=== PATIENT | male | born 1935 | race Caucasian/White ===

== ENCOUNTER 2019-01-08 02:10 | Emergency (ER) | payer MEDICARE ==
--- NOTE | 2019-01-08 02:42 | Emergency Department Record ---
History of Present Illness - General Chief complaint: Male Urogenital Problem Stated complaint: BLOOD IN URINE Time Seen by Provider: 01/08/19 02:30 Source: Patient, RN notes reviewed Mode of Arrival: Ambulatory - History of Present Illness Initial comments: hematuria and he self caths for 15 years and he has prostate cancer since [address] Leyva on and plans to have a suprapubic cath placed on January 25. patient was concerned he may have hurt himself. No abdominal pain and he has a soft abd Onset/Timin -: Year(s) Radiation: None Severity: Mild Quality: Aching Consistency: Other Reports: Blood in urine - Related Data Sexually active: No Previous Rx's Medication Instructions Recorded Ciprofloxacin HCl [Cipro] 500 mg PO Q12HR #20 tablet 01/08/19 Allergies Allergy/AdvReac Type Severity Reaction Status Date / Time Sulfa (Sulfonamide Allergy Unverified 01/06/19 09:18 Antibiotics) aspirin AdvReac gastric Unverified 01/06/19 09:18 symptoms Travel Screening - Travel/Exposure Within Last 30 Days Have you traveled within the last 30 days?: No - Travel/Exposure Within Last Year Have you traveled outside the [place] in the last year?: No - Additonal Travel Details Have you been exposed to anyone with a communicable illness?: No - Travel Symptoms Symptom Screening: None Review of Systems Reviewed: No additional complaints except as noted below Constitutional: Reports: As per HPI. Denies: Chills, Fever, Malaise, Night swea ts, Weakness, Weight change Eyes: Reports: As per HPI. Denies: Eye discharge, Eye pain, Photophobia, Vision change ENT: Reports: As per HPI. Denies: Congestion, Dental pain, Ear pain, Epistaxis, Hearing loss, Throat pain Respiratory: Reports: As per HPI. Denies: Cough, Dyspnea, Hemoptysis, Stridor, Wheezes Cardiovascular: Reports: As per HPI. Denies: Arrhythmia, Chest pain, Dyspnea on exertion, Edema, Murmurs, Orthopnea, Palpitations, Paroxysmal nocturnal dyspnea, Rheumatic Fever, Syncope Endocrine: Reports: As per HPI. Denies: Fatigue, Heat or cold intolerance, P olydipsia, Polyuria Gastrointestinal: Reports: As per HPI. Denies: Abdominal pain, Constipation, Diarrhea, Hematemesis, Hematochezia, Melena, Nausea, Vomiting Genitourinary: Reports: As per HPI, Hematuria. Denies: Dysuria, Frequency, Incontinence, Retention, Testicular pain, Testicular mass, Urgency Musculoskeletal: Reports: As per HPI. Denies: Arthralgia, Back pain, Gout, Joint swelling, Myalgia, Neck pain Skin: Reports: As per HPI. Denies: Bruising, Change in color, Change in hair/nails, Lesions, Pruritus, Rash Neurological: Reports: As per HPI. Denies: Abnormal gait, Confusion, Headache, Numbness, Paresthesias, Seizure, Tingling, Tremors, Vertigo, Weakness Psychiatric: Reports: As per HPI. Denies: Anxiety, Auditory hallucinations, Depression, Homicidal thoughts, Suicidal thoughts, Visual hallucinations Hematological/Lymphatic: Reports: As per HPI. 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) - ENDOCRINE Hx Endocrine Disorders: No - MUSCULOSKELETAL Hx Musculoskeletal Disorders: No - PSYCH Hx Psych Problems: No - HEMATOLOGY/ONCOLOGY Hx Hematology/Oncology Disorders: Yes Hx Cancer: Yes (prostate) Hx Radiation Therapy: Yes Comment:: prostate Family Medical History Any Significant Family History?: No Physical Exam - General General Appearance: Alert, Oriented x3, Cooperative, No acute distress - Head Head exam: Normal inspection - Eye Eye exam: Normal appearance, PERRL Pupils: Normal accommodation - ENT ENT exam: Normal exam, Mucous membranes moist, Normal external ear exam, Normal orophraynx, TM's normal bilaterally Ear exam: Normal external inspection. negative: External canal tenderness Nasal Exam: Normal inspection. negative: Discharge, Sinus tenderness Mouth exam: Normal external inspection, Tongue normal Teeth exam: Normal inspection. negative: Dental caries Throat exam: Normal inspection. negative: Tonsillar erythema, Tonsillar exudate - Neck Neck exam: Normal inspection, Full ROM. negative: Tenderness - Respiratory Respiratory exam: Normal lung sounds bilaterally. negative: Respiratory distress - Cardiovascular Cardiovascular Exam: Regular rate, Normal rhythm, Normal heart sounds - GI/Abdominal GI/Abdominal exam: Soft, Normal bowel sounds. negative: Tenderness - Rectal Rectal exam: Deferred - exam: Deferred - Extremities Extremities exam: Normal inspection, Full ROM, Normal capillary refill. negative: Tenderness - Back Back exam: Reports: Normal inspection, Full ROM. Denies: Muscle spasm, Rash noted, Tenderness - Neurological Neurological exam: Alert, Normal gait, Oriented X3, Reflexes normal - Psychiatric Psychiatric exam: Normal affect, Normal mood - Skin Skin exam: Dry, Intact, Normal color, Warm Course Vital Signs 01/08/19 02:21 Temperature 97.7 F Pulse Rate [ 111 H Pulse Ox Probe] Respiratory 20 Rate Blood Pressure 132/96 [Left Arm] Pulse Ox 99 Medical Decision Making - Lab Data Result diagrams: 01/08/19 02:30 01/08/19 02:30 Disposition Clinical Impression: Hematuria Qualifiers: Hematuria type: gross Qualified Code(s): R31.0 - Gross hematuria Disposition: Home, Self-Care Condition: (1) Good Instructions: Hematuria (ED) Additional Instructions: follow up with Dr mercer as scheduled on and return if he develops a fever or abdominal pain. Prescriptions: Ciprofloxacin HCl [Cipro] 500 mg PO Q12HR #20 tablet Time of Disposition: 02:47 Quality - Quality Measures Quality Measures: N/A - Blood Pressure Screening Does Patient Have Any of the Following: No, Active Dx of HTN Blood Pressure Classification: Hypertensive Reading Systolic Measurement: 132 Diastolic Measurement: 96 Screening for High Blood Pressure: Patient Exclusion, Hx of HTN [G9744]
[2019-01-08 02:43] LABS: ABSOLUTE NEUTROPHIL COUNT 3.72; EOS % 2.2 % (0-6); GRAN % 64.3 % (47-80); HEMATOCRIT 45.9 % (42.0-52.0); LYMPH % 21.6 % (16-45); MEAN CELL VOLUME 92.9 fl (81-97); MEAN CORPUSCULAR HEMOGLOBIN 30.4 pg (27-33); MEAN CORPUSCULAR HGB CONC 32.7 g/dl (32-36); MEAN PLATELET VOLUME 9.4 fl (7.4-10.4); MONO % 10.9 % (0-9); PLATELET COUNT 233 K/uL (130-400); RED BLOOD COUNT 4.94 M/uL (4.40-5.70); RED CELL DISTRIBUTION WIDTH 14.2 % (11.5-14.5); WHITE BLOOD COUNT W/O DIFF 5.8 K/uL (4.2-12.2)
[2019-01-08 02:45] LABS: URINE APPEARANCE SL CLOUDY; URINE BILIRUBIN NEGATIVE (NEGATIVE); URINE BLOOD NEGATIVE (NEGATIVE); URINE COLOR YELLOW; URINE GLUCOSE (UA) NEGATIVE (NEGATIVE); URINE PROTEIN NEGATIVE (NEGATIVE); URINE UROBILINOGEN 0.2 E.U./dL (0.20 - 1.00)
[2019-01-08 02:46] LABS: URINE LEUKOCYTE ESTERASE TRACE (NEGATIVE); URINE NITRITE NEGATIVE (NEGATIVE)
[2019-01-08] MEDS ORDERED: CIPROFLOXACIN HCL 500 MG TABLET PO ONE (02:48)
[2019-01-08 02:51] LABS: BLOOD UREA NITROGEN 20 mg/dL (8-23); CREATININE 1.1 mg/dL (0.7-1.2); EST GLOMERULAR FILTRATION RATE > 60 mL/min
[2019-01-08 02:53] LABS: URINE RBC 0 - 2 (NONE SEEN); URINE WBC 21 - 35 (0-2/hpf)
[2019-01-08 02:54] LABS: GLUCOSE,RANDOM 120 mg/dL (74-109); URINE BACTERIA 2+; URINE EPITHELIAL CELLS 0 - 2 (FEW)
[2019-01-08 02:57] LABS: URINE KETONE NEGATIVE (NEGATIVE)
== END 2019-01-08 03:05 | disposition home or self-care (01) ==
LOC: ER 02:10
DX: R31.0 Gross hematuria (principal); R82.79 Other abnormal findings on microbiological examination of urine; I10 Essential (primary) hypertension; I25.2 Old myocardial infarction; Z85.46 Personal history of malignant neoplasm of prostate
CPT/HCPCS: 80048; 81001; 85025; 99283

== ENCOUNTER 2019-01-17 13:43 | Emergency (ER) | payer MEDICARE, BC ==
--- NOTE | 2019-01-17 14:02 | Emergency Department Record ---
History of Present Illness - General Chief Complaint: Difficulty Breathing Stated Complaint: MARCO A Time Seen by Provider: 01/17/19 13:51 Source: Patient Mode of Arrival: Ambulatory Limitations: No limitations - History of Present Illness Initial Comments: The patient is here due to feeling congested for a month. He presently today had some chest pressure earlier but that is gone now. He states his lungs feel tight but he denies any CP, SOB, MARCO A, or any cough. 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 The patient does have an extensive cardiac hx with multiple stents. He also has been told he has Afib in the past. MD Complaint: Shortness of breath Onset/Timin -: Days(s) Known History Of: Congestive heart failure, Other - Related Data Home Medications Medication Instructions Recorded Confirmed Last Taken Furosemide [Lasix] 20 mg PO DAILY 01/17/19 01/17/19 01/17/19 Allergies Allergy/AdvReac Type Severity Reaction Status Date / Time Sulfa (Sulfonamide Allergy RASH Verified 01/17/19 13:51 Antibiotics) aspirin AdvReac gastric Verified 01/17/19 13:50 symptoms Travel Screening - Travel/Exposure Within Last 30 Days Have you traveled within the last 30 days?: No - Travel/Exposure Within Last Year Have you traveled outside the [place] in the last year?: No - Additonal Travel Details Have you been exposed to anyone with a communicable illness?: No - Travel Symptoms Symptom Screening: None Review of Systems Constitutional: Denies: Chills, Fever Eyes: Denies: Eye discharge ENT: Denies: Congestion Respiratory: Denies: Cough, Dyspnea, Hemoptysis, Stridor, Wheezes Cardiovascular: Reports: Dyspnea on exertion. Denies: Arrhythmia, Chest pain, Edema Endocrine: Denies: Fatigue Gastrointestinal: Denies: Nausea Genitourinary: Denies: Dysuria Musculoskeletal: Denies: Arthralgia Skin: Denies: Bruising Past Medical History - SOCIAL HISTORY Smoking Status: Never smoker Alcohol Use: None Drug Use: None - RESPIRATORY Hx Respiratory Disorders: No - CARDIOVASCULAR Hx Cardio Disorders: Yes Hx Cardiac Cath: Yes (4 caths with 2 stents) Hx CHF: Yes Hx Heart Attack: Yes (2016) Hx Hypertension: Yes Hx Irregular Heartbeat: Yes - NEURO Hx Neuro Disorders: Yes Hx CVA: Yes (2016) - GI Hx GI Disorders: No - Hx Genitourinary Disorders: Yes 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) - ENDOCRINE Hx Endocrine Disorders: No - MUSCULOSKELETAL Hx Musculoskeletal Disorders: No - PSYCH Hx Psych Problems: No - HEMATOLOGY/ONCOLOGY Hx Hematology/Oncology Disorders: Yes Hx Cancer: Yes (prostate) Hx Radiation Therapy: Yes Comment:: prostate Family Medical History Any Significant Family History?: No Physical Exam - General General Appearance: Alert, Oriented x3, Cooperative, No acute distress (The pat ient is in no distress and is speaking in full sentences with no difficulty.) - Head Head exam: Atraumatic, Normocephalic, Normal inspection - Eye Eye exam: Normal appearance, PERRL - ENT Throat exam: Normal inspection. negative: Tonsillar erythema, Tonsillar exudate - Neck Neck exam: Normal inspection, Full ROM. negative: Tenderness - Respiratory Respiratory exam: Normal lung sounds bilaterally. negative: Accessory muscle use, Decreased breath sounds, Rales, Respiratory distress, Rhonchi, Stridor, Wheezes - Cardiovascular Cardiovascular Exam: Irregular rhythm - GI/Abdominal GI/Abdominal exam: Soft, Normal bowel sounds. negative: Tenderness - Extremities Extremities exam: Normal inspection, Full ROM, Normal capillary refill. negative: Pedal edema, Tenderness - Neurological Neurological exam: Alert, Normal gait, Oriented X3. negative: Abnormal gait, Altered, Motor sensory deficit - Psychiatric Psychiatric exam: negative: Anxious - Skin Skin exam: negative: Rash Course Vital Signs 01/17/19 13:45 Temperature 97.7 F Pulse Rate 106 H Respiratory 16 Rate Blood Pressure 130/99 Pulse Ox 99 - Reevaluation(s) Reevaluation #1: The patient is doing well at this time. He denies any CP, SOB, MARCO A, or cough. I did explain to him that he could be in mild CHF due to the CXR and BNP and will recommend increasing his dose of Lasix. Due to the patient's issues with urinating and the fact he appears so stable and without ANY SOB or MARCO A I will hold off on any IV Lasix and will just increase his oral doses. I did recommend hospital admission for the patient's cardiac issues which include Afib and a LBBB. The patient states he has been told in the past he has Afib but is not on any blood thinners. He also is reluctant to start any presently due to being scheduled for a suprapubic catheter surgery next week Thu. I explained to him that by NOT being admitted he could go home and have a stroke, MT, worsening CHF, become disabled and even . The patient understands and accepts the risks. We will set the patient up with an appointment with Dr. Peraza for of this week. 01/17/19 14:44 Medical Decision Making - Data Complexity MDM Data: Labs Ordered and/or Reviewed, X-Ray Ordered and/or Reviewed, EKG Ordered and/or Reviewed - Lab Data Result diagrams: 01/17/19 13:52 01/17/19 13:52 - EKG Data -: EKG Interpreted by Me (LBBB with Afib at 94.) - Radiology Data Radiology results: Report reviewed (CXR: mild CMG with mild PVH.) Disposition Disposition: Discharge Clinical Impression: Chest pressure Disposition: Against Medical Advice Condition: (2) Stable Instructions: Dyspnea (ED) Additional Instructions: Please continue your regular medicines and please double your Lasix dose to 20 mg twice a day for 3 days then back down to your normal dose. Please see Dr. Peraza as directed later this week. Return to the ER for any worsening symptoms. Please also see your family doctor later this week for further evaluation. Referrals: [facility] [Provider Group] Forms: Patient Portal Access Time of Disposition: 14:55 Quality - Quality Measures Quality Measures: N/A - Blood Pressure Screening View Details: Yes Does Patient Have Any of the Following: No Blood Pressure Classification: Pre-Hypertensive BP Reading Systolic Measurement: 132 Diastolic Measurement: 85 Screening for High Blood Pressure: < Pre-Hypertensive BP, F/U Documented > [G8950] Pre-Hypertensive Follow-up Interventions: Referral to alternative/primary care provider.
[2019-01-17 14:06] LABS: ABSOLUTE NEUTROPHIL COUNT 5.64; BASO % 0.4 % (0-6); EOS % 0.4 % (0-6); GRAN % 71.5 % (47-80); HEMATOCRIT 47.7 % (42.0-52.0); HEMOGLOBIN 15.5 gm/dl (14.0-18.0); LYMPH % 17.4 % (16-45); MEAN CELL VOLUME 93.7 fl (81-97); MEAN CORPUSCULAR HEMOGLOBIN 30.5 pg (27-33); MEAN CORPUSCULAR HGB CONC 32.5 g/dl (32-36); MEAN PLATELET VOLUME 9.9 fl (7.4-10.4); MONO % 10.3 % (0-9); PLATELET COUNT 255 K/uL (130-400); RED BLOOD COUNT 5.09 M/uL (4.40-5.70); RED CELL DISTRIBUTION WIDTH 14.4 % (11.5-14.5); WHITE BLOOD COUNT W/O DIFF 7.9 K/uL (4.2-12.2)
[2019-01-17 14:21] LABS: BLOOD UREA NITROGEN 20 mg/dL (8-23); CREATININE 1.3 mg/dL (0.7-1.2); EST GLOMERULAR FILTRATION RATE 56 mL/min
[2019-01-17 14:22] LABS: TOTAL PROTEIN 7.1 g/dL (6.6-8.7)
[2019-01-17 14:24] LABS: GLUCOSE,RANDOM 110 mg/dL (74-109)
[2019-01-17 14:26] LABS: ALT/SGPT 19 U/L (<41)
[2019-01-17 14:27] LABS: ALB/GLOB RATIO 1.4 (1.1-1.8); ALBUMIN 4.1 g/dL (4.0-5.0); ALKALINE PHOSPHATASE 72 U/L (40-129); CREATINE PHOSPHOKINASE 60 U/L (39-308)
[2019-01-17 14:29] LABS: CKMB 3.7 ng/mL (<6.73)
[2019-01-17 14:35] LABS: AST/SGOT 28 U/L (10.0-50.0)
[2019-01-17] MEDS ORDERED: FUROSEMIDE IV 40MG/4ML VIAL IVP ONE (14:37)
[2019-01-17 14:43] LABS: INR 1.1; PARTIAL THROMBOPLASTIN TIME 28.9 SECONDS (24.5-39.1); PROTHROMBIN TIME (PATIENT) 11.1 SECONDS (9.5-12.1)
== END 2019-01-17 15:05 | disposition left against medical advice (07) ==
LOC: ER 13:43
DX: R07.89 Other chest pain (principal); R06.00 Dyspnea, unspecified; I48.91 Unspecified atrial fibrillation; I44.7 Left bundle-branch block, unspecified; I50.9 Heart failure, unspecified; I10 Essential (primary) hypertension; I25.2 Old myocardial infarction; R05 Cough
CPT/HCPCS: 71046; 80053; 82550; 82553; 83880; 84443; 84484; 85025; 85610; 85730; 93005; 93010; 99284

== ENCOUNTER 2019-04-13 01:50 | Observation (INO) | payer MEDICARE, BC ==
--- NOTE | 2019-04-13 02:01 | Emergency Department Record ---
History of Present Illness - General Chief Complaint: Shortness of breath Stated Complaint: MARCO A X 1 MONTH Time Seen by Provider: 04/13/19 01:57 Source: Patient Mode of Arrival: Ambulatory Limitations: No limitations - History of Present Illness Initial Comments: 83 yo male presents to ED for evaluation of difficulty in breathing for the past 1 month, worse this evening. Patient reports that he does not have a PCP, does however report [facility] and was told that he has CHF several months ago. Patient also reports a history of an irregular heart beat, denies taking anticoagulation medications, and previous tent placements. Patient denies lower extremity edema, chest discomfort, fevers, chills, or productive cough symptoms. MD Complaint: Shortness of breath Onset/Timin -: Month(s) Severity: Moderate Consistency: Constant Improves With: Nothing Worsens With: Nothing Known History Of: Congestive heart failure Associated Symptoms: Denies other symptoms Treatments Prior to Arrival: None - Related Data Home Oxygen Therapy: No Home Medications Medication Instructions Recorded Confirmed Last Taken Carvedilol [Coreg] 3.125 mg PO BID 04/13/19 04/13/19 Unknown Furosemide [Lasix] 1 tab PO DAILY 04/13/19 04/13/19 3 Days Ago ~04/10/19 Montelukast Sodium 1 tab PO DAILY 04/13/19 04/13/19 Unknown Potassium Chloride 10 meq PO DAILY 04/13/19 04/13/19 1 Day Ago ~04/12/19 Allergies Allergy/AdvReac Type Severity Reaction Status Date / Time Sulfa (Sulfonamide Allergy Mild RASH Verified 04/13/19 02:01 Antibiotics) aspirin AdvReac gastric Verified 04/13/19 02:01 symptoms Review of Systems Constitutional: Denies: Chills, Fever, Malaise, Night sweats Eyes: Denies: Eye discharge, Eye pain ENT: Reports: Congestion. Denies: Ear pain, Epistaxis Respiratory: Reports: Dyspnea. Denies: Cough, Hemoptysis, Wheezes Cardiovascular: Denies: Chest pain, Dyspnea on exertion, Edema, Palpitations Endocrine: Denies: Fatigue, Heat or cold intolerance Gastrointestinal: Denies: Abdominal pain, Nausea, Vomiting Genitourinary: Denies: Incontinence, Retention Musculoskeletal: Denies: Arthralgia, Back pain Skin: Denies: Bruising, Change in color Neurological: Denies: Abnormal gait, Confusion, Headache, Seizure Psychiatric: Denies: Anxiety Hematological/Lymphatic: Denies: Anemia, Blood Clots Past Medical History - SOCIAL HISTORY Smoking Status: Never smoker Drug Use: None - RESPIRATORY Hx Respiratory Disorders: No - CARDIOVASCULAR Hx Cardio Disorders: Yes Hx Cardiac Cath: Yes (4 caths with 2 stents) Hx CHF: Yes Hx Heart Attack: Yes (2017) Hx Hypertension: Yes Hx Irregular Heartbeat: Yes - NEURO Hx Neuro Disorders: Yes Hx CVA: Yes (2016) - GI Hx GI Disorders: No - Hx Genitourinary Disorders: Yes 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 negative: Conjunctival injection, Periorbital swelling, Periorbital tenderness, Scleral icterus - ENT Ear exam: negative: Auricular hematoma, Auricular trauma Nasal Exam: negative: Active bleeding, Discharge, Dried blood, Foreign body Mouth exam: negative: Drooling, Laceration, Muffled voice, Tongue elevation - Neck Neck exam: Normal inspection. negative: Meningismus, Tenderness - Respiratory Respiratory exam: Normal lung sounds bilaterally. negative: Rales, Respiratory distress, Rhonchi, Stridor - Cardiovascular Cardiovascular Exam: Irregular rhythm, Tachycardia - GI/Abdominal GI/Abdominal exam: Soft. negative: Rebound, Rigid, Tenderness - Rectal Rectal exam: Deferred - exam: Deferred - Extremities Extremities exam: Normal inspection. negative: Pedal edema, Tenderness - Back Back exam: Denies: CVA tenderness (R), CVA tenderness (L) - Neurological Neurological exam: Alert, Normal gait, Oriented X3 - Psychiatric Psychiatric exam: Flat affect - Skin Skin exam: Normal color. negative: Abrasion Type of lesion: negative: abrasion Course - Reevaluation(s) Reevaluation #1: 04/13/19 02:10 EKG: Atrial fibrillation 104 LAD, LBBB No Sgarbossa criteria are present Reevaluation #2: 04/13/19 02:50 Laboratory studies were reviewed and appear grossly unremarkable for an acute process. Patient is going for CTA at this time. Reevaluation #3: 04/13/19 03:43 CTA Chest: No PE Small-moderate pulmonary effusions Mutiple sub-pulmonary nodules, likely post-infectious Moderate cardiomegaly Dilated thoracic arch Patient was updated on all results, patient is currently rate-controlled. Will restart the patient's Coreg, Lasix, and initiate anticoagulation with Xarelto. Will admit for 2-D Echo and cardiology consultation on AM. Reevaluation #4: 04/13/19 06:43 Case was discussed with Dr. Reynolds, will accept admission at this time. Medical Decision Making - Lab Data Result diagrams: 04/13/19 02:10 04/13/19 02:10 Disposition Disposition: Admit Clinical Impression: Atrial fibrillation Qualifiers: Atrial fibrillation type: chronic Qualified Code(s): I48.2 - Chronic atrial fibrillation Dyspnea Qualifiers: Dyspnea type: unspecified Qualified Code(s): R06.00 - Dyspnea, unspecified Disposition: Still a Patient at [facility] Decision to Admit: Admit from ER Decision to Admit Date: 04/13/19 Decision to Admit Time: 02:51 Condition: (2) Stable Time of Disposition: 02:52 Quality - Quality Measures Quality Measures: N/A - Blood Pressure Screening Does Patient Have Any of the Following: Active Dx of HTN Blood Pressure Classification: Hypertensive Reading Systolic Measurement: 129 Diastolic Measurement: 99 Screening for High Blood Pressure: Patient Exclusion, Hx of HTN [G9744] First Hypertensive Follow-up Interventions: Referral to alternative/primary care provider.
[2019-04-13 02:18] LABS: ABSOLUTE NEUTROPHIL COUNT 3.69; BASO % 0.3 % (0-6); EOS % 1.3 % (0-6); GRAN % 60.1 % (47-80); HEMATOCRIT 47.9 % (42.0-52.0); HEMOGLOBIN 15.5 gm/dl (14.0-18.0); LYMPH % 28.1 % (16-45); MEAN CELL VOLUME 93.2 fl (81-97); MEAN CORPUSCULAR HEMOGLOBIN 30.2 pg (27-33); MEAN CORPUSCULAR HGB CONC 32.4 g/dl (32-36); MEAN PLATELET VOLUME 10.5 fl (7.4-10.4); MONO % 10.2 % (0-9); PLATELET COUNT 184 K/uL (130-400); RED BLOOD COUNT 5.14 M/uL (4.40-5.70); RED CELL DISTRIBUTION WIDTH 15.9 % (11.5-14.5); WHITE BLOOD COUNT W/O DIFF 6.2 K/uL (4.2-12.2)
[2019-04-13 02:37] LABS: BLOOD UREA NITROGEN 23 mg/dL (8-23); CREATININE 1.3 mg/dL (0.7-1.2); EST GLOMERULAR FILTRATION RATE 56 mL/min
[2019-04-13 02:38] LABS: TOTAL PROTEIN 6.8 g/dL (6.6-8.7)
[2019-04-13 02:40] LABS: GLUCOSE,RANDOM 118 mg/dL (74-109)
[2019-04-13 02:43] LABS: ALB/GLOB RATIO 1.6 (1.1-1.8); ALBUMIN 4.2 g/dL (4.0-5.0); ALKALINE PHOSPHATASE 76 U/L (40-129); ALT/SGPT 26 U/L (<41); AST/SGOT 39 U/L (10.0-50.0)
[2019-04-13] MEDS ORDERED: 0.9 % SODIUM CHLORIDE 1000ML 1,000 ML IV PRN (04:09)
--- NOTE | 2019-04-13 08:53 | History & Physical ---
History of Present Illness - Date of Service Date of Service for History & Physical: 04/13/19 - History of Present Illness Admitting Diagnosis: Atrial Fibrillation. CHF History of Present Illness: Mr. Welsh is a 83 y/o male with history of chronic obstructive heart failure, heart failure and chronic atrial fibrillation who presents with 3-4 week compla int of shortness of breath. The patient says that he stopped taking his medications a few days ago because he thought they were making him feel bad. The patient states that he has had cough and increasing feeling of congestion, but denies chest pain or palpitations. He says for the past 3 months he has had to sleep in a chair and has increasing shortness of breath with walking. He is on Coreg and Lasix daily which he has reportedly stopped taking. He also says that he recently was put on Lisinopril and was told that he has heart failure while at the [place] [facility] in [place]. He says he did not have a cardiac echo done and does not follow up with a heart doctor. On presentation to the [facility] the patient was not in acute distress but the patient was in atrial fibrillation. He is admitted to the general medical floor for acute CHF exacerbation and uncontrolled atrial f ibrillation. PCP: Patient has no PCP. Travel Screening - Travel/Exposure Within Last 30 Days Have you traveled within the last 30 days?: No - Travel/Exposure Within Last Year Have you traveled outside the [place] in the last year?: No - Additonal Travel Details Have you been exposed to anyone with a communicable illness?: No - Travel Symptoms Symptom Screening: None Review of Systems Constitutional: Denies: Chills, Fever, Malaise, Night sweats Eyes: Denies: Eye discharge, Eye pain ENT: Reports: Congestion. Denies: Ear pain, Epistaxis Respiratory: Reports: Dyspnea. Denies: Cough, Hemoptysis, Wheezes Cardiovascular: Reports: Dyspnea on exertion, Orthopnea. Denies: Chest pain, Edema, Palpitations Endocrine: Denies: Fatigue, Heat or cold intolerance Gastrointestinal: Denies: Abdominal pain, Nausea, Vomiting Genitourinary: Denies: Incontinence, Retention Musculoskeletal: Denies: Arthralgia, Back pain Skin: Denies: Bruising, Change in color Neurological: Denies: Abnormal gait, Confusion, Headache, Seizure Psychiatric: Denies: Anxiety Hematological/Lymphatic: Denies: Anemia, Blood Clots Past Medical History - SOCIAL HISTORY Smoking Status: Never smoker Drug Use: None - RESPIRATORY Hx Respiratory Disorders: No - CARDIOVASCULAR Hx Cardio Disorders: Yes Hx Cardiac Cath: Yes (4 caths with 2 stents) Hx CHF: Yes Hx Heart Attack: Yes (2016) Hx Hypertension: Yes Hx Irregular Heartbeat: Yes - NEURO Hx Neuro Disorders: Yes Hx CVA: Yes (2015) - GI Hx GI Disorders: No - Hx Genitourinary Disorders: Yes 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) - ENDOCRINE Hx Endocrine Disorders: No - MUSCULOSKELETAL Hx Musculoskeletal Disorders: No - PSYCH Hx Psych Problems: No - HEMATOLOGY/ONCOLOGY Hx Hematology/Oncology Disorders: Yes Hx Cancer: Yes (prostate) Hx Radiation Therapy: Yes Comment:: prostate Family Medical History Any Significant Family History?: Yes Hx Anxiety: Brother/Sister Hx Dementia: Mother Hx Heart Disease: Father Hx Stroke: Mother *Stroke Comment: mother with TIA's H&P Meds/Allergies - Allergies Allergies: Allergies Allergy/AdvReac Type Severity Reaction Status Date / Time Sulfa (Sulfonamide Allergy Mild RASH Verified 04/13/19 02:01 Antibiotics) aspirin AdvReac gastric Verified 04/13/19 02:01 symptoms - Home Medications Home Medications Medication Instructions Recorded Confirmed Last Taken Carvedilol [Coreg] 3.125 mg PO BID 04/13/19 04/13/19 Unknown Furosemide [Lasix] 1 tab PO DAILY 04/13/19 04/13/19 3 Days Ago ~04/10/19 Montelukast Sodium 1 tab PO DAILY 04/13/19 04/13/19 Unknown Potassium Chloride 10 meq PO DAILY 04/13/19 04/13/19 1 Day Ago ~04/12/19 - Active Medications Active Medications: Current Medications Carvedilol (Coreg) 3.125 mg PO BID [facility] Furosemide (Lasix) 40 mg PO DAILY [facility] Sodium Chloride () 1,000 mls @ 100 mls/hr IV .Q10H PRN PRN Reason: LARGE VOLUME IV Last Admin: 04/13/19 04:31 Dose: 100 mls/hr Documented by: Montelukast Sodium (Singulair) 10 mg PO DAILY [facility] Potassium Chloride (Klor-Con) 10 meq PO DAILY [facility] Rivaroxaban (Xarelto) 15 mg PO BID [facility] Physical Exam - Vital Signs Vital Signs: Vital Signs - Last 24 Hrs Temp Pulse Pulse Pulse Resp BP BP 04/13/19 08:40 88 18 04/13/19 08:00 97.6 F 88 88 18 132/84 04/13/19 04:40 98.0 F 96 H 18 133/101 04/13/19 04:05 97 H 16 127/107 04/13/19 01:52 97.8 F 114 H 20 129/99 Pulse Ox 04/13/19 08:40 04/13/19 08:00 100 04/13/19 04:40 98 04/13/19 04:05 97 04/13/19 01:52 98 - General General Appearance: Alert, Oriented x3, Cooperative, No acute distress Limitations: No limitations - Head Head exam: Atraumatic, Normocephalic, Normal inspection Head exam detail: negative: Abrasion, Contusion, Hale's sign, General tenderness, Hematoma, Laceration - Eye Eye exam: Normal appearance. negative: Conjunctival injection, Periorbital swelling, Periorbital tenderness, Scleral icterus - ENT Ear exam: negative: Auricular hematoma, Auricular trauma Nasal Exam: negative: Active bleeding, Discharge, Dried blood, Foreign body Mouth exam: negative: Drooling, Laceration, Muffled voice, Tongue elevation - Neck Neck exam: Normal inspection. negative: Meningismus, Tenderness - Respiratory Respiratory exam: Normal lung sounds bilaterally. negative: Rales, Respiratory distress, Rhonchi, Stridor - Cardiovascular Cardiovascular Exam: Irregular rhythm, Systolic murmur Peripheral Pulses: 2+: Radial (R), Radial (L) - GI/Abdominal GI/Abdominal exam: Soft. negative: Rebound, Rigid, Tenderness - Rectal Rectal exam: Deferred - exam: Deferred - Extremities Extremities exam: Normal inspection. negative: Pedal edema, Tenderness - Back Back exam: Denies: CVA tenderness (R), CVA tenderness (L) - Neurological Neurological exam: Alert, Normal gait, Oriented X3 - Psychiatric Psychiatric exam: Flat affect - Skin Skin exam: Normal color. negative: Abrasion Type of lesion: negative: abrasion Results - Labs Result Diagrams: 04/13/19 02:10 04/13/19 02:10 Labs Last 24 Hours: Laboratory Results - last 24 hr 04/13/19 04/13/19 04/13/19 02:10 02:10 02:10 WBC 6.2 RBC 5.14 Hgb 15.5 Hct 47.9 MCV 93.2 MCH 30.2 MCHC 32.4 RDW 15.9 H Plt Count 184 MPV 10.5 H Gran % 60.1 Lymphocytes % 28.1 Monocytes % 10.2 H Eosinophils % 1.3 Basophils % 0.3 Absolute Neutrophils 3.69 Sodium 139 Potassium 4.5 Chloride 102 Carbon Dioxide 24.0 Anion Gap 13.0 BUN 23 Creatinine 1.3 H Estimated GFR 56 Random Glucose 118 H Calcium 9.1 Total Bilirubin 1.80 H AST 39 ALT 26 Alkaline Phosphatase 76 Troponin T < 0.010 NT-Pro-B Natriuret Pep 3287.00 H Total Protein 6.8 Albumin 4.2 Globulin 2.6 Albumin/Globulin Ratio 1.6 VTE H&P Assessment - Risk for VTE Risk for VTE: Yes Risk Level: High Risk Assessment Date: 04/13/19 Risk Assessment Time: 09:31 VTE Orders Placed or Will Be Placed: Yes Plan - Detailed Diagnosis and Plan (1) Dyspnea on exertion Current Visit: Yes Status: Acute Base Code: R06.09 - OTHER FORMS OF DYSPNEA Comment: 04/13/19: - 2/2 to exacerbation of CHF. - Titrate oxygen to keep saturations > 94%. - Elevate head of bed > 30 deg (2) Chronic atrial fibrillation Current Visit: Yes Status: Acute Base Code: I48.2 - CHRONIC ATRIAL FIBRILLATION Comment: 04/13/18: - EKG: Atrial fibrillation w/ LBBB. No old ECG to establsh old v. new BBB. - Resume Coreg 3.125mg BID - Continuous conveyor monitor - [id number]: 3 based on age and hx of CHF. - HAS-BLED: 1 - Xarelto 20mg daily ordered. Benefits and risk of anticoagulation discussed with the patient. (3) CHF (congestive heart failure) Current Visit: Yes Status: Acute Base Code: I50.9 - HEART FAILURE, UNSPECIFIED Comment: 04/13/19: - pro BNP: 3287. - Troponin negative x 1 - Hx: Orthopnea x 3 months, exertional dyspnea. - On BB, KELSIE at home. Continue on BB and Lasix daily. - Daily weights, I/Os - 2D echo ordered, Cardiologio consult pending. (4) DVT prophylaxis Current Visit: Yes Status: Acute Base Code: Z29.9 - ENCOUNTER FOR PROPHYLACTIC MEASURES, UNSPECIFIED Comment: 04/13/19: - Anticoagulated on Xarelto 20mg daily. (5) Full code status Current Visit: Yes Status: Acute Base Code: Z78.9 - OTHER SPECIFIED HEALTH STATUS Comment: 04/13/19: - The patient is full code.
[2019-04-13] MEDS ORDERED: MONTELUKAST SODIUM 10MG TABLET PO SCH (10:00)
[2019-04-13] MEDS ORDERED: RIVAROXABAN 15 MG TABLET PO SCH (10:00)
[2019-04-13] MEDS: POTASSIUM CHLORIDE 10 MEQ TAB PO SCH (10:14)
[2019-04-13] MEDS: FUROSEMIDE 40 MG TABLET PO SCH (10:15)
[2019-04-13] MEDS: CARVEDILOL 3.125 MG TABLET PO SCH ×2 (10:15→21:25)
[2019-04-13] MEDS ORDERED: RIVAROXABAN 20 MG TABLET PO SCH (17:30)
[2019-04-13] MEDS: LISINOPRIL 5 MG TABLET PO SCH (17:31)
[2019-04-13] MEDS: DIGOXIN 125 MCG TABLET PO SCH (17:31)
[2019-04-13 17:54] LABS: URINE APPEARANCE CLEAR; URINE BILIRUBIN NEGATIVE (NEGATIVE); URINE BLOOD SMALL (NEGATIVE); URINE COLOR YELLOW; URINE GLUCOSE (UA) NEGATIVE (NEGATIVE); URINE KETONE NEGATIVE (NEGATIVE); URINE LEUKOCYTE ESTERASE SMALL (NEGATIVE); URINE NITRITE NEGATIVE (NEGATIVE); URINE PROTEIN NEGATIVE (NEGATIVE); URINE UROBILINOGEN 0.2 E.U./dL (0.20 - 1.00)
[2019-04-13 18:03] LABS: URINE BACTERIA 2+; URINE EPITHELIAL CELLS NONE SEEN (FEW); URINE RBC 0 - 2 (NONE SEEN)
--- NOTE | 2019-04-14 09:02 | Discharge Summary ---
Providers Discharge Summary Date: 04/14/19 Date of admission: 04/13/19 04:07 Attending physician: MILLY STEPHENS Primary care physician: DULCE GILMAN M.D. Consults: Consult Orders 04/13/19 04:09 Consult - Cardiology NOW Consulting Provider: Duong Dorado Physician Instructions: Reason For Exam: Atrial Fibrillation Does pt have current academic counselor?: Not Established Physical Exam - Vital Signs Vital Signs: Vital Signs - Last 24 Hrs Temp Pulse Pulse Resp BP Pulse Ox 04/14/19 08:00 97.8 F 86 16 138/89 98 04/13/19 20:00 97.7 F 94 H 16 129/96 98 04/13/19 19:39 16 04/13/19 12:00 98.6 F 88 16 115/90 - General General Appearance: Alert, Oriented x3, Cooperative, No acute distress Limitations: No limitations - Head Head exam: Atraumatic, Normocephalic, Normal inspection Head exam detail: negative: Abrasion, Contusion, Hale's sign, General tenderness, Hematoma, Laceration - Eye Eye exam: Normal appearance. negative: Conjunctival injection, Periorbital swelling, Periorbital tenderness, Scleral icterus - ENT Ear exam: negative: Auricular hematoma, Auricular trauma Nasal Exam: negative: Active bleeding, Discharge, Dried blood, Foreign body Mouth exam: negative: Drooling, Laceration, Muffled voice, Tongue elevation - Neck Neck exam: Normal inspection. negative: Meningismus, Tenderness - Respiratory Respiratory exam: Normal lung sounds bilaterally. negative: Rales, Respiratory distress, Rhonchi, Stridor - Cardiovascular Cardiovascular Exam: Irregular rhythm, Systolic murmur Peripheral Pulses: 2+: Radial (R), Radial (L) - GI/Abdominal GI/Abdominal exam: Soft. negative: Rebound, Rigid, Tenderness - Rectal Rectal exam: Deferred - exam: Deferred - Extremities Extremities exam: Normal inspection. negative: Pedal edema, Tenderness - Back Back exam: Denies: CVA tenderness (R), CVA tenderness (L) - Neurological Neurological exam: Alert, Normal gait, Oriented X3 - Psychiatric Psychiatric exam: Flat affect - Skin Skin exam: Normal color. negative: Abrasion Type of lesion: negative: abrasion Hospitalization - Hospitalization Admission Diagnosis: Atrial Fibrillation. CHF - Problem List/Discharge Diagnosis (1) Dyspnea on exertion Current Visit: Yes Status: Acute Base Code: R06.09 - OTHER FORMS OF DYSPNEA Comment: 04/14/19: - 2/2 to exacerbation of CHF. - Titrate oxygen to keep saturations > 94%. - Elevate head of bed > 30 deg (2) Chronic atrial fibrillation Current Visit: Yes Status: Acute Base Code: I48.2 - CHRONIC ATRIAL FIBRILLATION Comment: 04/14/18: - No acute changes on monitor. Rate controlled a fib - EKG: Atrial fibrillation w/ LBBB. No old ECG to establsh old v. new BBB. - Resume Coreg 3.125mg BID, Dig 125mcg daily - Continuous fur examiner - [id number]: 3 based on age and hx of CHF. - HAS-BLED: 1 - Xarelto 20mg daily ordered. Benefits and risk of anticoagulation discussed with the patient. (3) CHF (congestive heart failure) Current Visit: Yes Status: Acute Base Code: I50.9 - HEART FAILURE, UNSPECIFIED Comment: 04/14/19: - pro BNP: 3287. - Troponin negative x 1 - Hx: Orthopnea x 3 months, exertional dyspnea. - Medication optimization with BB, KELSIE and Lasix daily - Daily weights, I/Os - 2D echo noting marked reduction EF 10%, with hypkinetic delgado. - Outpatient follow up with Cardiology for [facility] and further workup. (4) DVT prophylaxis Current Visit: Yes Status: Acute Base Code: Z29.9 - ENCOUNTER FOR PROPHYLACTIC MEASURES, UNSPECIFIED Comment: 04/14/19: - Anticoagulated on Xarelto 20mg daily. (5) Full code status Current Visit: Yes Status: Acute Base Code: Z78.9 - OTHER SPECIFIED HEALTH STATUS Comment: 04/14/19: - The patient is full code. - Hospitalization Course Hospital Course: Mr. Welsh is a 83 y/o male with history of chronic obstructive heart failure, heart failure and chronic atrial fibrillation who presents with 3-4 week complaint of shortness of breath. The patient says that he stopped taking his medications a few days ago because he thought they were making him feel bad. The patient states that he has had cough and increasing feeling of congestion, but denies chest pain or palpitations. He says for the past 3 months he has had to sleep in a chair and has increasing shortness of breath with walking. He is on Coreg and Lasix daily which he has reportedly stopped taking. He also says that he recently was put on Lisinopril and was told that he has heart failure while at the [place] [facility] in [place]. He says he did not have a cardiac echo done and does not follow up with a heart doctor. On presentation to the [facility] the patient was not in acute distress but the patient was in atrial fibrillation. He is admitted to the general medical floor for acute CHF exacerbation and uncontrolled atrial fibrillation. : During admission the patient remained in atrial fibrillation but symptomatically improved with diuresis. 2D echo showed EF 10% with global hypokinesis. The patient was started on Lisinopril 2.5mg and Digoxin 125mcg as per Cardiology recommendation. Later in the afternoon the patient complained of urinary burning and a UA was drawn revealing small leukocytes, no nitrites and 10-15 WBCs. On evaluation this morning the patient is awake, alert and oriented. PCP: Patient has no PCP. Procedures: Imaging and X-Rays 04/13/19 01:57 CHEST CTA w contrast [CTA] Stat Cardiology Procedures 04/13/19 01:57 EKG NOW 04/13/19 04:09 Call Center Operations Manager .Continuous Echo W/CF & Cardiac Doppler NOW Abnormal Labs: Abnormal Lab Results 04/13/19 04/13/19 04/13/19 Range/Units 02:10 02:10 02:10 RDW 15.9 H (11.5-14.5) % MPV 10.5 H (7.4-10.4) fl Monocytes % 10.2 H (0-9) % Creatinine 1.3 H (0.7-1.2) mg/dL Random Glucose 118 H (74-109) mg/dL Total Bilirubin 1.80 H (0.2-1.0) mg/dL NT-Pro-B Natriuret Pep 3287.00 H (<450) pg/mL Urine Blood (NEGATIVE) Ur Leukocyte Esterase (NEGATIVE) 04/13/19 Range/Units 17:45 RDW (11.5-14.5) % MPV (7.4-10.4) fl Monocytes % (0-9) % Creatinine (0.7-1.2) mg/dL Random Glucose (74-109) mg/dL Total Bilirubin (0.2-1.0) mg/dL NT-Pro-B Natriuret Pep (<450) pg/mL Urine Blood Small H (NEGATIVE) Ur Leukocyte Esterase Small H (NEGATIVE) Condition at Discharge: (2) Stable Discharge Medications - Discharge Medications Prescriptions: Potassium Chloride [Klor-Con] 10 meq PO DAILY #30 tablet.sa Digoxin [Lanoxin] 125 mcg PO DAILY #30 tablet Rivaroxaban [Xarelto] 20 mg PO 1730 #30 tab Lisinopril [Zestril] 2.5 mg PO DAILY #30 tablet Home Medications: Ambulatory Orders Albuterol Sulfate 1.25 mg IH ASDIR 01/06/19 [Last Taken Unknown] Multivitamin [Multi-Vitamin Daily] 1 each PO DAILY tab 02/18/19 [Last Taken Unknown] Winnett-3 Fatty Acids/Fish Oil [Fish Oil 1,000 mg Capsule] 1 cap PO QD cap 02/18/19 [Last Taken Unknown] Ubidecarenone [Coq-10] 30 mg PO DAILY cap 02/18/19 [Last Taken Unknown] Vitamin B Complex [B Complex] 1 each PO DAILY tab 02/18/19 [Last Taken Unknown] Carvedilol [Coreg] 3.125 mg PO BID 04/13/19 [Last Taken Unknown] Furosemide [Lasix] 1 tab PO DAILY 04/13/19 [Last Taken 3 Days Ago ~04/10/19] Digoxin [Lanoxin] 125 mcg PO DAILY #30 tablet 04/14/19 [Last Taken Unknown] Lisinopril [Zestril] 2.5 mg PO DAILY #30 tablet 04/14/19 [Last Taken Unknown] Potassium Chloride [Klor-Con] 10 meq PO DAILY #30 tablet.sa 04/14/19 [Last Taken Unknown] Rivaroxaban [Xarelto] 20 mg PO 1730 #30 tab 04/14/19 [Last Taken Unknown] Discharge Plan - Discharge Instructions Activity at Discharge: Resume Usual Activities As Tolerated Diet at Discharge: Low Fat, Low Cholesterol, Low Salt Diet Additional Instructions: Appointment with Primary Care Physician Dr. Dulce Gilman at the [facility] on Thursday, April 25 at 11:00am. Follow up with Dr. Duong Gorman (Cardiology). Please provide the patient with number to call and make appt. Medications: Lisinopril 2.5mg daily Digoxin 125mcg daily Xarelto 20mg daily Coreg 3.125mg twice daily Lasix 40 mg daily Klor-con 10meq daily It is important that the patient remain compliant with all medications prescribed and follow up with the doctors noted. Quality Measures - Quality Measures Quality Measures: Atrial Fibrillation & Atrial Flutter: Chronic Anticoagulation Therapy, Advance Directives, Documentation of Current Medications in Medical Record, Elder Maltreatment Screen and Follow-Up Plan, Heart Failure, Screening for High Blood Pressure and F/U Documented - Current Medications Quality Measure: Measure #130: Documentation of Current Medications Documentation of Current Medications: <Current Medications Documented/Reviewed> [R0870] - Blood Pressure Screening Quality Measure: Screening for High Blood Pressure and Follow-Up Documented Does Patient Have Any of the Following: No Blood Pressure Classification: Hypertensive Reading Systolic Measurement: 129 Diastolic Measurement: 99 Screening for High Blood Pressure: < Normal BP, F/U Not Required > [S8624] - Atrial Fibrillation and Atrial Flutter Quality Measure: Atrial Fibrillation & Atrial Flutter: Chronic Anticoagulation Therapy Does Patient Have Any of the Following: No CHADS2 Risk Stratification: Prior Stroke/TIA or Systemic Embolism, Age 75 or Greater, Hypertension, Heart Failure or Impaired LVSF Risk Stratification Summary: One or more high risk factors OR more than one moderate risk factor exists. [N2772] Anticoagulation Therapy: <Oral anticoagulant Prescribed> [T5067] - Heart Failure (KELSIE/ARB Therapy) Quality Measure: Heart Failure Left Ventricular Systolic Function: LV Ejection Fraction less than 40% [3021F] KELSIE Inhibitor or ARB Therapy for LVSD: <KELSIE Inhibitor or ARB therapy prescribed or currently taken> [4010F] - Heart Failure (Beta-tommie Therapy) Quality Measure: Heart Failure Left Ventricular Systolic Function: LV Ejection Fraction less than 40% [3021F] Beta-Tommie Therapy for LVEF < 40%: <Beta-Tommie Therapy Prescribed> [N8450] - Advance Directives Quality Measure: Measure #47: Care Plan Advance Directives Established: No Advance Directives Information Provided To Patient: No Advance Directives on File: No Living Will: No Power of Mannequin Molder: No Advance Care Planning: <Care Plan/Decision Maker Documented; Discussed & Documented> [0823F] - Elder Abuse Suspicion Index Screening: Elder Abuse Suspicion Index Screening Rely on people for bathing, dressing, shopping, banking, etc: No Prevented from getting food, clothes, medication, etc: No Made to feel shamed or threatened by someone: No Forced to sign papers or use money against will: No Feel afraid, touched in ways not wanted or hurt physically: No Poor eye contact, withdrawn, malnourished, cuts or bruises: No Screening Result: Negative result EASI Reference Information: Dre SIMPSON, Jenny C, Lisa Gonzalez, Taran Blandon.Development and validation of a tool to assist physicians identification of elder abuse: The Elder Abuse Suspicion Index (EASI ). Journal of Elder Abuse and Neglect, 2008; 20 (3): 276-300. - Elder Maltreatment Screen Quality Measures: Elder Maltreatment Screen and Follow-Up Plan Elder Maltreatment Screen: <Negative, No Follow-Up Plan Required> [G8734]
--- NOTE | 2019-04-14 09:42 | Medical Records Consult ---
REASON FOR CONSULTATION: The patient is an 83-year-old gentleman who was seen in consultation for acute congestive heart failure. HISTORY OF PRESENT ILLNESS: The patient is 83 years old and presents to [facility] on 04/13/2019 with increasing dyspnea. He states that he is having dyspnea with minimal exertion and with lying flat. This has been ongoing for the past 3 weeks. He denies angina, palpitations, TIA, syncope, or claudication. He has history of coronary artery disease with 2 drug-eluting stents remotely. He states that this was greater than 15 years ago and he has not followed up with Cardiology over the years. He was seen one time in our cardiology office in January 2019 and recommended to have an echocardiogram and Lexiscan stress Cardiolite but declined. He has not been compliant with his medications on an outpatient basis. He has atrial fibrillation with left bundle- branch block at a rate of 104 beats per minute on admission. His proBNP was elevated at 3287. He denies diabetes mellitus. He has not been taking statin therapy for history of coronary artery disease. He has history of tobacco use. PAST MEDICAL HISTORY: Coronary artery disease, permanent atrial fibrillation, primary hypertension, TIA. PAST SURGICAL HISTORY: Appendectomy, bilateral carotid endarterectomy, coronary artery disease with 2 stents. HOME MEDICATIONS: 1. Nattokinase which he buys offline. 2. K-Ramonita. 3. Furosemide 40 mg daily which he has been noncompliant with. 4. Carvedilol 3.125 mg b.i.d. which he has been noncompliant with. ALLERGIES: ASPIRIN due to a gastric ulcer previously. SULFA causing hives. SOCIAL HISTORY: He is still active. 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 He denies tobacco use currently. FAMILY HISTORY: Noncontributory. PHYSICAL EXAMINATION: VITAL SIGNS: He is afebrile. Blood pressure is 133/101, pulse 96, respiration 18. LUNGS: A few crackles in the right base. CARDIAC: Systolic murmur 2/6 radiating to the axilla. ABDOMEN: Soft. EXTREMITIES: Mild edema. LABORATORY DATA: White count 6.2, hemoglobin 15.5, platelets 184,000. Sodium 139, potassium 4.5, BUN 23, creatinine 1.3, proBNP 3287. ECG demonstrates atrial fibrillation with left bundle-branch block. RADIOGRAPHIC DATA: Echocardiogram performed on 04/13/2019 demonstrates ejection fraction of approximately 10% to 15% with severe biatrial enlargement, moderate tricuspid regurgitation, moderate mitral regurgitation, mild aortic insufficiency. FINAL IMPRESSION: 1. Acute systolic and diastolic congestive heart failure. 2. Permanent atrial fibrillation. 3. ECG demonstrating atrial fibrillation with left bundle-branch block. 4. Coronary artery disease. 5. Carotid artery disease, status post bilateral carotid endarterectomy. PLAN: The patient has progressive ischemic cardiomyopathy. He has been noncompliant over the years and at this time probably no significant benefit from cardiac catheterization. Will recommend initiation of rivaroxaban 20 mg daily for permanent atrial fibrillation. We will resume furosemide 40 mg daily. It appears he does not need potassium supplement at this time. We will initiate carvedilol 3.125 mg b.i.d., lisinopril 2.5 mg daily, and digoxin 125 mcg daily. He should follow up in our office within 1-2 weeks to reassess how he is doing. Would recommend repeat CMP and BNP prior to the next office visit. KAITLYND
--- NOTE | 2019-04-14 10:58 | CT ANGIOGRAM REPORT ---
EXAM: CTA OF THE CHEST HISTORY: ATRIAL FIBRILLATION, DYSPNEA. TECHNIQUE: CTA images of the chest were obtained with intravenous contrast. Coronal and sagittal reformats were also obtained. Please see the patient's record for contrast information. Comparison: None. FINDINGS: Motion is present which limits evaluation for small distal pulmonary emboli. There are strandy opacifications present within the pulmonary arteries bilaterally with the appearance of opacified and unopacified blood. No clear filling defect identified to suggest pulmonary embolism. The central pulmonary arteries are normal in caliber. The heart size is at the upper limits of normal to mildly enlarged. There are coronary artery calcifications. Some reflux of contrast into the inferior vena cava and hepatic vein is noted. Otherwise, no evidence for right heart strain. The pericardium is not thickened. The aorta is poorly opacified limiting its evaluation. There is atherosclerosis. The ascending thoracic aorta is mildly dilated at 4.5 cm in greatest AP dimension. There is mediastinal and bilateral hilar adenopathy present. The largest node is present within the subcarinal space and measures 2.3 cm in short axis. There are small bilateral pleural effusions greater on the right. There is associated compressive atelectasis. Motion limits evaluation of the lung parenchyma. There are patchy areas of ground glass opacity present bilaterally. Subpleural nodularity is noted to the greatest extent within the upper lobes right greater than left in the right middle lobe. Nodular densities measure up to 8 mm. There appears to be some bronchial wall thickening present bilaterally. The central airways appear patent. No pneumothorax. Mild bilateral gynecomastia noted. The chest wall and axillary regions otherwise appear grossly unremarkable. There are degenerative changes of the spine. Limited cuts through the upper abdomen reveal atherosclerosis. IMPRESSION: 1. MOTION LIMITS EVALUATION FOR SMALL DISTAL PULMONARY EMBOLI. GIVEN THIS, NO CLEAR CTA EVIDENCE FOR PULMONARY EMBOLISM. 2. BILATERAL PLEURAL EFFUSIONS WITH ASSOCIATED COMPRESSIVE ATELECTASIS. 3. PATCHY AREAS OF GROUND GLASS OPACIFICATION BILATERALLY SUGGESTING SEQUELA OF AIR TRAPPING OR ACTIVE PNEUMONITIS. THERE IS SOME BRONCHIAL WALL THICKENING SUGGESTING TRANSBRONCHIAL SPREAD OF INFLAMMATION OR INFECTION. SUBPLEURAL NODULARITY PRESENT BILATERALLY SEEN TO THE GREATEST EXTENT ON THE RIGHT. DIFFERENTIAL CONSIDERATIONS WOULD INCLUDE INFECTIOUS, INFLAMMATORY, AND NEOPLASTIC ETIOLOGIES. FOLLOW-UP CT EXAMINATION IN THREE MONTHS RECOMMENDED. 4. THERE IS MILD DILATION OF THE ASCENDING THORACIC AORTA. FOLLOW-UP IN ONE YEAR RECOMMENDED. 5. A PRELIMINARY REPORT WAS PROVIDED BY THE RADIOLOGIST HUMAN RESOURCE ANALYST. JOB NUMBER: [id number] [facility]
[2019-04-14] MEDS: POTASSIUM CHLORIDE 10 MEQ TAB PO SCH (11:00)
[2019-04-14] MEDS: CARVEDILOL 3.125 MG TABLET PO SCH (11:00)
[2019-04-14] MEDS: DIGOXIN 125 MCG TABLET PO SCH (11:00)
[2019-04-14] MEDS: LISINOPRIL 5 MG TABLET PO SCH (11:00)
[2019-04-14] MEDS: FUROSEMIDE 40 MG TABLET PO SCH (11:01)
== END 2019-04-14 11:37 | disposition home or self-care (01) ==
LOC: ER 01:50 → MEDSURG 04:07
PROVIDERS: ADMIT Internal Medicine; ATTEND Internal Medicine
DX: I48.2 Chronic atrial fibrillation (principal); I50.9 Heart failure, unspecified; R06.09 Other forms of dyspnea; J44.9 Chronic obstructive pulmonary disease, unspecified; I10 Essential (primary) hypertension; I44.7 Left bundle-branch block, unspecified; I25.2 Old myocardial infarction; Z95.5 Presence of coronary angioplasty implant and graft; Z98.61 Coronary angioplasty status; Z86.73 Personal history of transient ischemic attack (TIA), and cerebral infarction without residual deficits; Z85.46 Personal history of malignant neoplasm of prostate
CPT/HCPCS: 71275; 80053; 81001; 82310; 83880; 84484; 85025; 93005; 93010; 93306; 99217; 99220; 99285

== ENCOUNTER 2019-08-07 09:32 | Emergency (ER) | payer MEDICARE, BC ==
[2019-08-07 10:22] LABS: ABSOLUTE NEUTROPHIL COUNT 5.95; BASO % 0.2 % (0-6); EOS % 0.9 % (0-6); GRAN % 68.4 % (47-80); HEMOGLOBIN 15.8 gm/dl (14.0-18.0); LYMPH % 19.4 % (16-45); MEAN CELL VOLUME 94.4 fl (81-97); MEAN CORPUSCULAR HEMOGLOBIN 30.4 pg (27-33); MEAN CORPUSCULAR HGB CONC 32.2 g/dl (32-36); MEAN PLATELET VOLUME 9.8 fl (7.4-10.4); MONO % 11.1 % (0-9); PLATELET COUNT 167 K/uL (130-400); RED BLOOD COUNT 5.19 M/uL (4.40-5.70); WHITE BLOOD COUNT W/O DIFF 8.7 K/uL (4.2-12.2)
--- NOTE | 2019-08-07 10:46 | RADIOLOGY REPORT ---
EXAMINATION: Two View Chest Radiographs EXAM DATE: 08/07/2019 10:31 AM TECHNIQUE: Frontal and lateral views INDICATION: cough COMPARISON: 01/17/2019 ENCOUNTER: Not applicable FINDINGS: The heart, mediastinum, and pulmonary vasculature are normal. There is chronic hyperinflation of the lungs. No lung consolidation or pleural effusions are present. IMPRESSION: No acute radiographic findings. Dictated by: Sandhya Oliveira MD on 08/07/2019 10:40 AM. .
--- NOTE | 2019-08-07 11:02 | Emergency Department Record ---
History of Present Illness - General Chief complaint: ENT Stated complaint: SORE THROAT Time Seen by Provider: 08/07/19 09:58 Source: Patient Mode of Arrival: Ambulatory Limitations: No limitations - History of Present Illness Initial comments: pt has had a sore throat and a productive cough and congestion for 4 days. he has difficulty swallowing MD complaint: Difficulty swallowing, Sore throat Onset/Timin -: Days(s) Location: Throat Severity scale (1-10): 7 Consistency: Constant, Getting worse Associated Symptoms: Pain with swallowing, Sore throat - Related Data Home Medications Medication Instructions Recorded Confirmed Last Taken Magnesium Oxide [Magnesium] 400 mg PO DAILY 08/07/19 08/07/19 08/07/19 Previous Rx's Medication Instructions Recorded Digoxin [Lanoxin] 125 mcg PO DAILY #30 tablet 04/14/19 Lisinopril [Zestril] 2.5 mg PO DAILY #30 tablet 04/14/19 Potassium Chloride [Klor-Con] 10 meq PO DAILY #30 tablet.sa 04/14/19 Cephalexin [Keflex] 500 mg PO BID #14 cap 08/07/19 Allergies Allergy/AdvReac Type Severity Reaction Status Date / Time Sulfa (Sulfonamide Allergy Mild RASH Verified 08/07/19 09:38 Antibiotics) aspirin AdvReac gastric Verified 08/07/19 09:38 symptoms Travel Screening - Travel/Exposure Within Last 30 Days Have you traveled within the last 30 days?: No - Travel/Exposure Within Last Year Have you traveled outside the [place] in the last year?: No - Additonal Travel Details Have you been exposed to anyone with a communicable illness?: No - Travel Symptoms Symptom Screening: None Review of Systems Reviewed: No additional complaints except as noted below Constitutional: Reports: As per HPI. Denies: Chills, Fever, Malaise, Night sweats, Weakness, Weight change Eyes: Reports: As per HPI. Denies: Eye discharge, Eye pain, Photophobia, Vision change ENT: Reports: As per HPI. Denies: Congestion, Dental pain, Ear pain, Epistaxis, Hearing loss, Throat pain Respiratory: Reports: As per HPI. Denies: Cough, Dyspnea, Hemoptysis, Stridor, Wheezes Cardiovascular: Reports: As per HPI. Denies: Arrhythmia, Chest pain, Dyspnea on exertion, Edema, Murmurs, Orthopnea, Palpitations, Paroxysmal nocturnal dyspnea, Rheumatic Fever, Syncope Endocrine: Reports: As per HPI. Denies: Fatigue, Heat or cold intolerance, Polydipsia, Polyuria Gastrointestinal: Reports: As per HPI. Denies: Abdominal pain, Constipation, Diarrhea, Hematemesis, Hematochezia, Melena, Nausea, Vomiting Genitourinary: Reports: As per HPI. Denies: Dysuria, Frequency, Hematuria, Incontinence, Retention, Testicular pain, Testicular mass, Urgency Musculoskeletal: Reports: As per HPI. Denies: Arthralgia, Back pain, Gout, Joint swelling, Myalgia, Neck pain Skin: Reports: As per HPI. Denies: Bruising, Change in color, Change in hair/nails, Lesions, Pruritus, Rash Neurological: Reports: As per HPI. Denies: Abnormal gait, Confusion, Headache, Numbness, Paresthesias, Seizure, Tingling, Tremors, Vertigo, Weakness Psychiatric: Reports: As per HPI. Denies: Anxiety, Auditory hallucinations, Depression, Homicidal thoughts, Suicidal thoughts, Visual hallucinations Hematological/Lymphatic: Reports: As per HPI. 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) - ENDOCRINE Hx Endocrine Disorders: No - MUSCULOSKELETAL Hx Musculoskeletal Disorders: No - PSYCH Hx Psych Problems: No - HEMATOLOGY/ONCOLOGY Hx Hematology/Oncology Disorders: Yes Hx Cancer: Yes (prostate) Hx Radiation Therapy: Yes Comment:: prostate Family Medical History Any Significant Family History?: Yes Hx Anxiety: Brother/Sister Hx Dementia: Mother Hx Heart Disease: Father Hx Stroke: Mother *Stroke Comment: mother with TIA's Physical Exam - General General Appearance: Alert, Oriented x3, Cooperative, No acute distress - Head Head exam: Normal inspection - Eye Eye exam: Normal appearance, PERRL, EOMI Pupils: Normal accommodation - ENT ENT exam: Normal exam, Mucous membranes moist, Normal external ear exam, Normal orophraynx Ear exam: Normal external inspection. negative: External canal tenderness Nasal Exam: Normal inspection. negative: Discharge, Sinus tenderness Mouth exam: Normal external inspection, Tongue normal Teeth exam: Normal inspection. negative: Dental caries Throat exam: Tonsillar erythema. negative: Tonsillar exudate - Neck Neck exam: Normal inspection, Full ROM. negative: Tenderness - Respiratory Respiratory exam: Normal lung sounds bilaterally. negative: Respiratory distress - Cardiovascular Cardiovascular Exam: Regular rate, Normal rhythm, Normal heart sounds - GI/Abdominal GI/Abdominal exam: Soft, Normal bowel sounds. negative: Tenderness - Rectal Rectal exam: Deferred - exam: Deferred - Extremities Extremities exam: Normal inspection, Full ROM, Normal capillary refill. negative: Tenderness - Back Back exam: Reports: Normal inspection, Full ROM. Denies: Muscle spasm, Rash noted, Tenderness - Neurological Neurological exam: Alert, CN II-XII intact, Normal gait, Oriented X3 - Psychiatric Psychiatric exam: Normal affect, Normal mood - Skin Skin exam: Dry, Intact, Normal color, Warm Course Vital Signs 08/07/19 08/07/19 09:37 09:47 Temperature 97.7 F 97.7 F Pulse Rate 56 L Pulse Rate [ 65 Pulse Ox Probe] Respiratory 18 18 Rate Blood Pressure 151/90 Blood Pressure 151/90 [Left Arm] Pulse Ox 98 98 - Reevaluation(s) Reevaluation #1: 08/07/19 10:58 pts cxr neg Medical Decision Making - Lab Data Result diagrams: 08/07/19 10:10 Lab Results 08/07/19 08/07/19 Range/Units 10:10 10:10 WBC 8.7 (4.2-12.2) K/uL RBC 5.19 (4.40-5.70) M/uL Hgb 15.8 (14.0-18.0) gm/dl Hct 49.0 (42.0-52.0) % MCV 94.4 (81-97) fl MCH 30.4 (27-33) pg MCHC 32.2 (32-36) g/dl RDW 15.0 H (11.5-14.5) % Plt Count 167 (130-400) K/uL MPV 9.8 (7.4-10.4) fl Gran % 68.4 (47-80) % Lymphocytes % 19.4 (16-45) % Monocytes % 11.1 H (0-9) % Eosinophils % 0.9 (0-6) % Basophils % 0.2 (0-6) % Absolute Neutrophils 5.95 Group A Strep Screen Negative (NEGATIVE) Disposition Disposition: Discharge Clinical Impression: Pharyngitis Qualifiers: Pharyngitis/tonsillitis etiology: unspecified etiology Qualified Code(s): J02.9 - Acute pharyngitis, unspecified Disposition: Home, Self-Care Condition: (1) Good Instructions: Pharyngitis (ED) Additional Instructions: follow up with family doctor. return sooner if worse. tylenol as needed Prescriptions: Cephalexin [Keflex] 500 mg PO BID #14 cap Quality - Quality Measures Quality Measures: N/A - Blood Pressure Screening Does Patient Have Any of the Following: Active Dx of HTN Blood Pressure Classification: Hypertensive Reading Systolic Measurement: 151 Diastolic Measurement: 90 Screening for High Blood Pressure: Patient Exclusion, Hx of HTN [G9744]
[2019-08-07] MEDS: ACETAMINOPHEN 500 MG TABLET PO ONE (11:09)
== END 2019-08-07 11:19 | disposition home or self-care (01) ==
LOC: ER 09:32
DX: J02.9 Acute pharyngitis, unspecified (principal); R05 Cough; R10.13 Epigastric pain; I10 Essential (primary) hypertension; I25.2 Old myocardial infarction; I50.9 Heart failure, unspecified
CPT/HCPCS: 71046; 85025; 87880; 99284

== ENCOUNTER 2019-08-16 10:04 | Emergency (ER) | payer MEDICARE, BC, OTHER ==
[2019-08-16 11:28] LABS: BASO % 0.3 % (0-6); EOS % 1.9 % (0-6); GRAN % 70.5 % (47-80); HEMATOCRIT 47.2 % (42.0-52.0); LYMPH % 18.9 % (16-45); MEAN CELL VOLUME 95.2 fl (81-97); MEAN CORPUSCULAR HEMOGLOBIN 30.2 pg (27-33); MEAN CORPUSCULAR HGB CONC 31.8 g/dl (32-36); MEAN PLATELET VOLUME 9.2 fl (7.4-10.4); MONO % 8.4 % (0-9); PLATELET COUNT 224 K/uL (130-400); RED BLOOD COUNT 4.96 M/uL (4.40-5.70); RED CELL DISTRIBUTION WIDTH 15.1 % (11.5-14.5); WHITE BLOOD COUNT W/O DIFF 7.5 K/uL (4.2-12.2)
[2019-08-16 11:37] LABS: BLOOD UREA NITROGEN 17 mg/dL (8-23); EST GLOMERULAR FILTRATION RATE > 60 mL/min
[2019-08-16 11:40] LABS: GLUCOSE,RANDOM 126 mg/dL (74-109)
--- NOTE | 2019-08-16 12:08 | Emergency Department Record ---
History of Present Illness - General Chief complaint: ENT Stated complaint: SORE THROAT Time Seen by Provider: 08/16/19 10:57 Source: Patient Mode of Arrival: Ambulatory Limitations: No limitations - History of Present Illness Initial comments: pt has productive cough, sore throat, night sweats and hemoptysis. he was here for similar symptoms 10 days ago and had a course of abx. he got better then got worse again MD complaint: Difficulty swallowing, Sore throat Onset/Timin -: Hour(s) Improves with: None Worsens with: None Associated Symptoms: Cough, Rhinorrhea, Sore throat - Related Data Previous Rx's Medication Instructions Recorded Digoxin [Lanoxin] 125 mcg PO DAILY #30 tablet 04/14/19 Lisinopril [Zestril] 2.5 mg PO DAILY #30 tablet 04/14/19 Potassium Chloride [Klor-Con] 10 meq PO DAILY #30 tablet.sa 04/14/19 Amoxicillin/Potassium Clav 1 each PO BID #14 tablet 08/16/19 [Augmentin 875Mg/125Mg] Allergies Allergy/AdvReac Type Severity Reaction Status Date / Time Sulfa (Sulfonamide Allergy Mild RASH Verified 08/07/19 09:38 Antibiotics) aspirin AdvReac gastric Verified 08/07/19 09:38 symptoms Travel Screening - Travel/Exposure Within Last 30 Days Have you traveled within the last 30 days?: No - Travel/Exposure Within Last Year Have you traveled outside the [place] in the last year?: No - Additonal Travel Details Have you been exposed to anyone with a communicable illness?: No - Travel Symptoms Symptom Screening: None Review of Systems Reviewed: No additional complaints except as noted below Constitutional: Reports: As per HPI. Denies: Chills, Fever, Malaise, Night sweats, Weakness, Weight change Eyes: Reports: As per HPI. Denies: Eye discharge, Eye pain, Photophobia, Vision change ENT: Reports: As per HPI, Congestion, Throat pain. Denies: Dental pain, Ear pain, Epistaxis, Hearing loss Respiratory: Reports: As per HPI, Cough. Denies: Dyspnea, Hemoptysis, Stridor, Wheezes Cardiovascular: Reports: As per HPI. Denies: Arrhythmia, Chest pain, Dyspnea on exertion, Edema, Murmurs, Orthopnea, Palpitations, Paroxysmal nocturnal dyspnea, Rheumatic Fever, Syncope Endocrine: Reports: As per HPI. Denies: Fatigue, Heat or cold intolerance, Polydipsia, Polyuria Gastrointestinal: Reports: As per HPI. Denies: Abdominal pain, Constipation, Diarrhea, Hematemesis, Hematochezia, Melena, Nausea, Vomiting Genitourinary: Reports: As per HPI. Denies: Dysuria, Frequency, Hematuria, Incontinence, Retention, Testicular pain, Testicular mass, Urgency Musculoskeletal: Reports: As per HPI. Denies: Arthralgia, Back pain, Gout, Joint swelling, Myalgia, Neck pain Skin: Reports: As per HPI. Denies: Bruising, Change in color, Change in hair/nails, Lesions, Pruritus, Rash Neurological: Reports: As per HPI. Denies: Abnormal gait, Confusion, Headache, Numbness, Paresthesias, Seizure, Tingling, Tremors, Vertigo, Weakness Psychiatric: Reports: As per HPI. Denies: Anxiety, Auditory hallucinations, Depression, Homicidal thoughts, Suicidal thoughts, Visual hallucinations Hematological/Lymphatic: Reports: As per HPI. 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 - ENDOCRINE Hx Endocrine Disorders: No - MUSCULOSKELETAL Hx Musculoskeletal Disorders: No - PSYCH Hx Psych Problems: No - HEMATOLOGY/ONCOLOGY Hx Hematology/Oncology Disorders: Yes Hx Cancer: Yes (prostate) Hx Radiation Therapy: Yes Comment:: prostate Family Medical History Any Significant Family History?: No Hx Anxiety: Brother/Sister Hx Dementia: Mother Hx Heart Disease: Father Hx Stroke: Mother *Stroke Comment: mother with TIA's Physical Exam - General General Appearance: Alert, Oriented x3, Cooperative, Mild distress - Head Head exam: Normal inspection - Eye Eye exam: Normal appearance, PERRL, EOMI Pupils: Normal accommodation - ENT ENT exam: Normal exam, Mucous membranes moist, Normal external ear exam, Normal orophraynx Ear exam: Normal external inspection. negative: External canal tenderness Nasal Exam: Normal inspection. negative: Discharge, Sinus tenderness Mouth exam: Normal external inspection, Tongue normal Teeth exam: Normal inspection. negative: Dental caries Throat exam: Tonsillar erythema. negative: Tonsillar exudate - Neck Neck exam: Normal inspection, Full ROM. negative: Tenderness - Respiratory Respiratory exam: Normal lung sounds bilaterally. negative: Respiratory distress - Cardiovascular Cardiovascular Exam: Regular rate, Normal rhythm, Normal heart sounds - GI/Abdominal GI/Abdominal exam: Soft, Normal bowel sounds. negative: Tenderness - Rectal Rectal exam: Deferred - exam: Deferred - Extremities Extremities exam: Normal inspection, Full ROM, Normal capillary refill. negative: Tenderness - Back Back exam: Reports: Normal inspection, Full ROM. Denies: Muscle spasm, Rash noted, Tenderness - Neurological Neurological exam: Alert, Normal gait, Oriented X3, Reflexes normal - Psychiatric Psychiatric exam: Normal affect, Normal mood - Skin Skin exam: Dry, Intact, Normal color, Warm Course Vital Signs 08/16/19 10:21 Temperature 97.9 F Pulse Rate [ 71 Pulse Ox Probe] Respiratory 18 Rate Blood Pressure 140/81 [Left Arm] Pulse Ox 99 - Reevaluation(s) Reevaluation #1: 08/16/19 12:48 ct neck neg, cxr neg Medical Decision Making - Lab Data Result diagrams: 08/16/19 11:22 08/16/19 11:22 Lab Results 08/16/19 08/16/19 Range/Units 11:22 11:22 WBC 7.5 (4.2-12.2) K/uL RBC 4.96 (4.40-5.70) M/uL Hgb 15.0 (14.0-18.0) gm/dl Hct 47.2 (42.0-52.0) % MCV 95.2 (81-97) fl MCH 30.2 (27-33) pg MCHC 31.8 L (32-36) g/dl RDW 15.1 H (11.5-14.5) % Plt Count 224 (130-400) K/uL MPV 9.2 (7.4-10.4) fl Gran % 70.5 (47-80) % Lymphocytes % 18.9 (16-45) % Monocytes % 8.4 (0-9) % Eosinophils % 1.9 (0-6) % Basophils % 0.3 (0-6) % Absolute Neutrophils 5.30 Sodium 140 (136-145) mmol/L Potassium 4.2 (3.4-4.5) mmol/L Chloride 102 (98-107) mmol/L Carbon Dioxide 26.0 (22-29) mmol/L Anion Gap 12.0 (7-16) BUN 17 (8-23) mg/dL Creatinine 1.0 (0.7-1.2) mg/dL Estimated GFR > 60 mL/min Random Glucose 126 H (74-109) mg/dL Calcium 8.9 (8.8-10.2) mg/dL Disposition Disposition: Discharge Clinical Impression: Bronchitis, Hemoptysis Disposition: Home, Self-Care Condition: (1) Good Instructions: Acute Bronchitis (ED), Hemoptysis (ED) Additional Instructions: follow up with family doctor. return sooner if worse. tylenol as needed Prescriptions: Amoxicillin/Potassium Clav [Augmentin 875Mg/125Mg] 1 each PO BID #14 tablet Forms: Patient Portal Access Quality - Quality Measures Quality Measures: N/A - Blood Pressure Screening Does Patient Have Any of the Following: No Blood Pressure Classification: Pre-Hypertensive BP Reading Systolic Measurement: 140 Diastolic Measurement: 81 Screening for High Blood Pressure: < Pre-Hypertensive BP, F/U Documented > [G8950] Pre-Hypertensive Follow-up Interventions: Follow-up with rescreen every year.
--- NOTE | 2019-08-16 12:19 | CT SCAN REPORT ---
EXAMINATION: CT Neck Soft Tissues without IV Contrast EXAM DATE: 08/16/2019 12:11 PM TECHNIQUE: Standard protocol CT images of the neck were obtained without intravenous contrast. Sagitt al and coronal images were reconstructed. INDICATION: hemoptysis COMPARISON: CT chest 04/13/2019. ENCOUNTER: Not applicable FINDINGS: Sensitivity for soft tissue lesions diminished without intravenous contrast. Visualized portion of the brain shows volume loss not unusual for age. Arterial calcifications are no rodger. Prior bilateral lens surgery. Mild paranasal sinus mucosal thickening. Probable cerumen filling the right external auditory canal. No neck mass or lymphadenopathy evident. Normal epiglottis. No airway compromise or intratracheal les ion evident. There is a punctate calcification in the floor the mouth on the right side which may be incidental dy strophic calcification or a tiny salivary gland calculus of doubtful significance as there is no asso ciated mass or ductal dilatation evident. There is a nonspecific 4 mm right apical pulmonary nodule. This is not different when comparing to th e prior CT chest. Please see prior CT chest report. Some linear densities in the lungs suggest minor scarring or atelectasis. Arterial calcifications at aortic arch, great vessels and carotid bifurcatio n levels noted. Degenerative changes in the cervical spine are noted. Mild deformity superior endplate of T1 is stabl e consistent with a mild old compression deformity. Small bilateral torus mandibularis. IMPRESSION: No neck mass or lymphadenopathy evident. Dictated by: Cesar Mendosa MD on 08/16/2019 12:09 PM. .
--- NOTE | 2019-08-16 12:26 | RADIOLOGY REPORT ---
EXAMINATION: Two View Chest Radiographs EXAM DATE: 08/16/2019 12:10 PM TECHNIQUE: PA and lateral views. INDICATION: cough COMPARISON: 08/07/2019 ENCOUNTER: Not applicable FINDINGS: The heart is borderline in size. There is no pulmonary vascular congestion. The hilar and mediastinal contours appear stable. No effusion, pneumothorax or acute pulmonary process is seen. IMPRESSION: Borderline cardiomegaly. No acute findings. No significant change from 08/07/2019. Dictated by: David Salgado MD on 08/16/2019 12:22 PM. .
== END 2019-08-16 13:08 | disposition home or self-care (01) ==
LOC: ER 10:04
DX: J20.9 Acute bronchitis, unspecified (principal); R04.2 Hemoptysis; I10 Essential (primary) hypertension; I25.2 Old myocardial infarction
CPT/HCPCS: 70490; 71046; 80048; 85025; 99284